=== PATIENT | male | born 1940 | race Caucasian/White ===

== ENCOUNTER 2021-11-05 13:51 | Inpatient (IN) | payer MEDICARE, BC ==
[~2021-11-05] VITALS: Ht 175.3 cm; Wt 88.9 kg
[~2021-11-05 13:51] MED LIST: BUPR300T52 PO; CHOL20004 PO; ESOM20CA PO; SIMV10TA2 PO; TAMS-3 PO
[2021-11-05] MEDS ORDERED: IV NORMAL SALINE 1000 ML BAG IV ONE (14:15)
[2021-11-05] MEDS ORDERED: KETOROLAC TROMETHAMINE 15 MG INJ IVP ONE (14:15)
[2021-11-05 14:26] LABS: HEMATOCRIT 44.9 % (36.7-47.1); MEAN CORPUSCULAR HEMOGLOBIN 32.1 uug (23.8-33.4); MEAN CORPUSCULAR VOLUME 92.8 fL (73.0-96.2); PLATELET COUNT (AUTO) 218 K/uL (152-348)
[2021-11-05] MEDS ORDERED: SWABABLE VALVE TRANSFER SET EA MC ONE (14:27)
[2021-11-05] MEDS ORDERED: IV NORMAL SALINE 250 ML IV ONE (14:27)
[2021-11-05] MEDS ORDERED: IOHEXOL 300MG/ML 100 ML INFUS..BTL ONE (14:27)
[2021-11-05] MEDS ORDERED: KETOROLAC TROMETHAMINE 15 MG INJ ONE (14:30)
[2021-11-05 14:44] LABS: BILIRUBIN,TOTAL 0.7 mg/dL (0.2-1.0); POTASSIUM 3.8 mmol/L (3.5-5.1); TOTAL PROTEIN, SERUM 7.1 g/dL (6.4-8.2)
--- NOTE | 2021-11-05 15:35 | NUR ---
Pt taken for CT scan via wheelchair accompanied by tech. Pt in stable condition at time of transport, in NAD.
--- NOTE | 2021-11-05 15:55 | NUR ---
Pt return to unit in stable condition. IV hydration resumed. Pt in NAD at this time.
--- NOTE | 2021-11-05 17:40 | NUR ---
Provider spoke with pt regarding CT results. Pt states being in agreement with admission but may have some reservations on having a surgery. Will consider his options and will let us know what he decides.
--- NOTE | 2021-11-05 18:25 | NUR ---
Rm assignment [id number]. Will endorse to superintendent meter tests.
[2021-11-05] MEDS: ONDANSETRON 4 MG/2 ML VIAL IV PRN (18:40)
[2021-11-05] MEDS ORDERED: ONDANSETRON 4 MG/2 ML VIAL ONE (18:45)
[2021-11-05] MEDS ORDERED: MORPHINE SULFATE 2 MG/1 ML DISP.SYRIN ONE (18:45)
[2021-11-05] MEDS ORDERED: MORPHINE SULFATE 2 MG/1 ML DISP.SYRIN IV ONE (19:15)
[2021-11-05 20:13] LABS: *BILIRUBIN,URIN NEGATIVE (NEGATIVE); *BLOOD, URINE NEGATIVE (NEGATIVE); *CLARITY,URINE CLEAR (CLEAR); *COLOR,URINE YELLOW (YELLOW); *KETONES,URINE TRACE (NEGATIVE); *UROBILINOGEN,URINE 0.2 E.U./dl (NORMAL); LEUKOCYTE ESTERASE ,URINE NEGATIVE (NEGATIVE); NITRITE, URINE NEGATIVE (NEGATIVE); UGLUCOSE NEGATIVE (NEGATIVE)
[2021-11-05] MEDS ORDERED: ONDANSETRON 4 MG/2 ML VIAL IV PRN (20:15)
[2021-11-05] MEDS ORDERED: MORPHINE SULFATE 4 MG/1 ML DISP.SYRIN IV PRN (20:15)
[2021-11-05] MEDS ORDERED: MORPHINE SULFATE 4 MG/1 ML DISP.SYRIN ONE (20:25)
[2021-11-05 20:30] VITALS: BP 111/74
--- NOTE | 2021-11-05 20:30 | NUR ---
Report given to Eladia MATA tele.
--- NOTE | 2021-11-05 20:40 | NUR ---
admitted this 81 y.o male from er, accompanied by and er nurse via silvana, alert oriented x4, no acute distress noted, cief complaints of abdominal pain on right upper quadrant,npo observed. admission care done, tonja gomez notified, admit ordrers carried out.iv access on left antecubital area, g 20 patent and intact. needs attended to.
[2021-11-05 21:00] VITALS: BP 111/74
[2021-11-05] MEDS ORDERED: PIPERACILLIN/TAZOBACTAM/D5W 100 ML IV ONE (22:51)
[2021-11-06] VITALS (7 sets, daily range): BP systolic 90–132; BP diastolic 46–66
--- NOTE | 2021-11-06 | NUR ---
penitentiary assessment done, skin intact, on tele sr 68.hs care done, instructed regarding upcoming surgery in am, advance directive papers provided by , attached to chart, vital signs taken and recorded, afebrile now, tylenol supp. effective. for oscar covington in am by dr. felipe, pt wants to sign consent after speaking with
[2021-11-06] MEDS: ACETAMINOPHEN 650 MG SUPP.RECT RC PRN ×2 (00:07→11:23)
[2021-11-06] MEDS: PIPERACILLIN SODIUM/TAZOBACTAM 3.375 G in IV DEXTROSE 5% 50 ML IV SCH ×2 (00:12→06:21)
[2021-11-06] MEDS: MORPHINE SULFATE 2 MG/1 ML DISP.SYRIN IV PRN ×2 (04:12→20:30)
[2021-11-06] MEDS: ONDANSETRON 4 MG/2 ML VIAL IV PRN (04:51)
--- NOTE | 2021-11-06 06:40 | NUR ---
lab draws done for type screen and pt/ptt,zofran effective for nausea.
[2021-11-06 06:49] LABS: HEMATOCRIT 41.2 % (36.7-47.1); MEAN CORPUSCULAR HEMOGLOBIN 31.6 uug (23.8-33.4); MEAN CORPUSCULAR VOLUME 93.5 fL (73.0-96.2); PLATELET COUNT (AUTO) 173 K/uL (152-348)
[2021-11-06] MEDS ORDERED: MIDAZOLAM HCL 2 MG/2 ML VIAL ONE (06:50)
[2021-11-06] MEDS ORDERED: FENTANYL CITRATE 250 MCG/5 ML AMPUL ONE (06:51)
[2021-11-06] MEDS ORDERED: HYDROMORPHONE 2 MG/1 ML DISP.SYRIN ONE (06:51)
[2021-11-06] MEDS ORDERED: ROCURONIUM BROMIDE 50 MG/5 ML VIAL ONE (06:52)
[2021-11-06 06:55] LABS: BILIRUBIN,TOTAL 1.1 mg/dL (0.2-1.0); CREATININE 1.1 mg/dL (0.6-1.3); MAGNESIUM 1.6 mg/dL (1.8-2.4); POTASSIUM 3.9 mmol/L (3.5-5.1)
[2021-11-06] MEDS ORDERED: BUPIVACAINE 0.25% 30 ML VIAL ONE (07:02)
--- NOTE | 2021-11-06 07:02 | NUR ---
voided freely well, ivfluids infusing well.surgical team picked up pt via bed, in apparently fair condition
[2021-11-06] MEDS: PANTOPRAZOLE SODIUM 40 MG VIAL IV SCH (08:11)
--- NOTE | 2021-11-06 08:11 | NUR ---
Pt picked up by surgery team. Pt kept NPO
[2021-11-06] MEDS ORDERED: SEVOFLURANE 250 ML BOTTLE IH ONE (09:57)
[2021-11-06] MEDS ORDERED: PROPOFOL 200 MG/20 ML BOTTLE IV ONE (09:57)
[2021-11-06] MEDS ORDERED: ONDANSETRON 4 MG/2 ML VIAL IV ONE (09:57)
[2021-11-06] MEDS ORDERED: GLYCOPYRROLATE 0.2 MG/ML VIAL IJ ONE (09:57)
[2021-11-06] MEDS ORDERED: METOCLOPRAMIDE HCL 10 MG/2 ML VIAL IV ONE (09:57)
[2021-11-06] MEDS ORDERED: LIDOCAINE-MPF 2% 5 ML VIAL IJ ONE (09:57)
[2021-11-06] MEDS ORDERED: CEFAZOLIN 1 G VIAL IM ONE (09:57)
[2021-11-06] MEDS ORDERED: NEOSTIGMINE METHYLSULFATE 10 MG/10 ML VIAL IM ONE (09:57)
[2021-11-06] MEDS: MAGNESIUM SULFATE/D5W 100 ML IV SCH ×2 (11:06→14:05)
--- NOTE | 2021-11-06 11:10 | NUR ---
Received pt back. Pt alert x 2 reoriented pt to time. Noted CLIFFORD site on right upper quadrant on suction. 3x stab wounds on abd. mid. x2 right upper quadrant. Pt on 3 liters. Hanged magnesium 1/2 secondary to mag of 1.6
--- NOTE | 2021-11-06 12:00 | NUR ---
Pt has elevated temp of 101. Tylenol given and cooling measures done. Notified Dr sorensen. Blood culture done. Call light is within reach.
[2021-11-06] MEDS ORDERED: PIPERACILLIN SODIUM/TAZOBACTAM 3.375 G in IV DEXTROSE 5% 50 ML IV SCH (14:00)
--- NOTE | 2021-11-06 14:00 | NUR ---
Tylenol and cooling measure effective. Temp 98.0 Call light is within reach.
[2021-11-06] MEDS: PIPERACILLIN SODIUM/TAZOBACTAM 3.375 G in IV DEXTROSE 5% 100 ML IV SCH (14:05)
[2021-11-06] MEDS ORDERED: DEXT10TA19 PO (16:35)
[2021-11-06] MEDS ORDERED: ESOM40CA PO (17:20)
[2021-11-06] MEDS ORDERED: SIMV-46 PO (17:22)
[2021-11-06] MEDS ORDERED: TIMO5DRO18 EACHEYE (17:28)
[2021-11-06] MEDS ORDERED: ZOLP10TA2 PO (17:54)
[2021-11-06] MEDS ORDERED: Medication Not On Formulary EA (Zolpidem Tartrate (Ambien) 10 MG) PO PRN (18:15)
--- NOTE | 2021-11-06 18:45 | NUR ---
PT denies any complain of pain. Pt still not passing gas. Call light is within reach.
--- NOTE | 2021-11-06 20:00 | NUR ---
RECD PT IN BED, NO ACUTE DISTRESS NOTED,VITAL SIGNS TAKEN AND RECORDED, NEEDS ATTENDED TO,ALERT ORIENTEDX 4, AT BEDSIDE,IV FLUIDS INFUSING WELL.REPOSITIONED FOR COMFORT, INSTRUCTED ON HOW TO USE INCENTIVE SPIROMETER, ABLE TO FOLLOW DIRECTIONS, CLIFFORD DRAIN ON RIGHT SIDE OF ABDOMEN INTACT AND DRAINING WELL TO SERO SANGINOUS DRAINAGE,LAP SITES CLEAN AND DRESSINGS ARE INTACT. DEEP BREATHING EXERCISES AND COUGHING ENCOURAGED.
[2021-11-06] MEDS: IV D5 1/2 NS 1000 ML 1,000 ML IV PRN ×2 (22:36)
[2021-11-07] VITALS (50 sets, daily range): BP systolic 71–156; BP diastolic 34–112
[2021-11-07] MEDS ORDERED: PIPERACILLIN SODIUM/TAZOBACTAM 3.375 G in IV DEXTROSE 5% 50 ML IV SCH ×2
--- NOTE | 2021-11-07 | NUR ---
TEMP AT THIS TIME 100.2, COOLING MEASURES DONE, TYLENOL SUPP.GIVEN, VOIDED FREELY WELL USING URINAL, KEPT DRY AND CLEAN, HR MOSTLY ON THE LOW SIDE,ABLE TO TOLERATE FLUIDS ORALLY, ABDOMINAL AREA CHECKED FOR ANY DEVIATION.IV SITE PATENT AND INTACT ON LEFT ANTECUBITAL AREA. SLEPT ON AND OFF.IVPB ZOSYN INFUSED ORDERED.
[2021-11-07] MEDS: ACETAMINOPHEN 650 MG SUPP.RECT RC PRN (01:09)
[2021-11-07] MEDS: PIPERACILLIN SODIUM/TAZOBACTAM 3.375 G in IV DEXTROSE 5% 50 ML IV SCH ×2 (01:12→06:00)
[2021-11-07] MEDS: MORPHINE SULFATE 2 MG/1 ML DISP.SYRIN IV PRN ×2 (01:46→09:29)
--- NOTE | 2021-11-07 03:15 | NUR ---
HR WENT DOWN TO 43-47, PT AWAKENED, REPOSITIONED.VITAL SIGN TAKEN BP 84/38, ALERT ORIENTED,SKILLED ASSESSMENT DONE. ROOM TEMP REGULATED, 98.9 TEMP. DVT PUMP ON BOTH LOWER EXTREMITIES, CLIFFORD DRAIN IN PLACE. DR. SEGURA NOTIFIED OF PT'S LOWBP AND VERY LOW HR. NO FURTHER ORDERS GIVEN , CONTINUE TO MONITOR PT'S CONDITION.
--- NOTE | 2021-11-07 04:36 | NUR ---
STILL NOT PASSING GAS, VOIDING FREELY, NOTHING UNUSUAL NOTED ON LAP SITES.SLEPT INTERMITTENTLY.ABLE TO DANLE IN BED FOR SHORT TIME,NO NAUSEA OR DIZZINESS NOTED.STILL ON DNR STATUS.
[2021-11-07] MEDS: PIPERACILLIN SODIUM/TAZOBACTAM 3.375 G in IV DEXTROSE 5% 100 ML IV SCH (06:14)
--- NOTE | 2021-11-07 06:26 | NUR ---
RESTING QUIETLY,AFEBRILE, OXYGEN INHALATION AT2L VIA NC,SATS 95%,ENDORSED TO AM SHIFT IN APPARENT;Y FAIR CONDITION
[2021-11-07 06:56] LABS: HEMATOCRIT 37.1 % (36.7-47.1); MEAN CORPUSCULAR VOLUME 94.1 fL (73.0-96.2); PLATELET COUNT (AUTO) 129 K/uL (152-348)
[2021-11-07 07:17] LABS: BILIRUBIN,TOTAL 0.9 mg/dL (0.2-1.0); CREATININE 1.3 mg/dL (0.6-1.3); MAGNESIUM 2.4 mg/dL (1.8-2.4); POTASSIUM 3.5 mmol/L (3.5-5.1); TOTAL PROTEIN, SERUM 5.4 g/dL (6.4-8.2)
--- NOTE | 2021-11-07 08:00 | NUR ---
Clarified with pharmacy that zosyn was given earlier from hs shift.
[2021-11-07] MEDS ORDERED: IV NORMAL SALINE 500 ML IV ONE (09:15)
[2021-11-07] MEDS: PANTOPRAZOLE SODIUM 40 MG VIAL IV SCH (09:22)
[2021-11-07] MEDS: TIMOLOL MALEATE 0.5% OPHT DROP 5 ML BOTTLE EACHEYE SCH (09:22)
[2021-11-07] MEDS ORDERED: PROPOFOL 200 MG/20 ML BOTTLE ONE (10:00)
--- NOTE | 2021-11-07 10:50 | NUR ---
PT restless moaning and groaning turning frequently. Checked o2 sat got 71 % called rapid response. Put pt on NRB mask got o2 back up to 96%. checked temp 98.1. bp elevated 183/95- [address] hickman and notified of findings including wheezing RIGHT LOWER Lung. ABG CXR EKG TROP LACTIC BNP Atrovent HHNTX ordered- done and given accordingly. [address] result given to dr hickman. noted st depression on ekg strip - Put pt on tele for monitoring. b/p now 123/85 - hr 65 resp 24 02 sat 97 on NRB. pt still turning and tossing and still restless pt now taking out his O2 NRB and DESATURATING TO LOW 80% sat and attempting to pull out his IV. GOT an order for ativan. 1130 Called [employer] supervisor and security to have DPOA FARZANA [phone]. FARZANA was overbearing to staff and dictating what to do. taken out of room for she was interfering with pt care. Farzana out on waiting room on hallway. 1145 Ativan given as ordered. 1200 pt calm ativan effective. pt on 02 @6lit with 97% b/p 1210 Pt started to get agitated, restless, and shivering again. Now pt is clenching his teeth down and mouth is bleeding IV TAKEN OUT, desaturating to 84% put pt back on nrb mask got sat back up to 92% l DR HICKMAN HERE (aware of all informations of lab cxr abg ekg results) TO update FARZANA DPOA. DR HICKMAN saw pt's condition of being agitated and restless 1212 Tylenol suppository given per dr hickman. DR hickman spoke with FARZANA whitlock to Intubate patient. DR miranda here / WAITER/WAITRESS FIRST CLASS KYLE helped out on giving MEDS during intubation. PT intubated @ 1230 . 1245 Transferred to ICU. Last VS 149/64 - HR 74- o2 sat 99% intubated- hr 70 snr on tele- resp 20. Addendum: 11/07/21 at 1642 by LACEY MATHEWS RN URINE SPECIMEN COLLECTED AND SENT TO LAB
[2021-11-07] MEDS ORDERED: IPRATROPIUM BROMIDE 0.5 MG/2.5 ML NEBU NEB PRN (11:00)
[2021-11-07 11:10] LABS: ABG BASE EXCESS -4.4 mmol/L; ABG HCO3 21.4 mmol/L; ABG PCO2 42.1 mmHg (35.0-45.0); ABG PH 7.324 (7.350-7.450); ABG SITE LEFT RADIAL; ABG TOTAL HEMOGLOBIN 14.8 G/dL (13.5-18.0); COHb 0.6 % (0.5-1.5); MetHb 0.2 % (0.0-1.5); O2Hb 96.6 % (94.0-97.0)
[2021-11-07] MEDS ORDERED: LORAZEPAM 2 MG/1 ML VIAL IV ONE ×2 (11:45)
[2021-11-07] MEDS ORDERED: ETOMIDATE 20 MG/10 ML VIAL IV ONE (12:00)
[2021-11-07] MEDS ORDERED: SUCCINYLCHOLINE CHLORIDE 200 MG/10 ML VIAL IV ONE (12:00)
[2021-11-07] MEDS ORDERED: PROPOFOL 50 ML IV PRN (12:30)
--- NOTE | 2021-11-07 12:30 | NUR ---
PT INTUBATED BY WITH A SIZE 7.5 ETT WITHOUT DIFFICULTY. COLOR CHANGE ON END-TIDAL, BI-LATERAL BREATH SOUNDS OBSERVED. ETT IS PATENT AND SECURED WITH ANCHORFAST APPROX 23CM AT THE LIP. PT TRANSPORTED TO CCU AND PLACED ON VENTILATOR ON SETTINGS GIVEN BY . A/C 20, VT 550, PEEP +5, 100% FIO2. PT IS TOLERATING VENT SETTINGS WELL, SPO2 AND RESPIRATIONS WNL. NO RESP. DISTRESS NOTED. SPUTUM SPECIMEN COLLECTED. VENT PLUGGED INTO RED OUTLET. WILL CONTINUE TO MONITOR.
[2021-11-07] MEDS ORDERED: MEROPENEM 1 G in IV NORMAL SALINE 100 ML IV SCH (12:45)
[2021-11-07] MEDS ORDERED: BUMETANIDE 1 MG/4 ML VIAL IV ONE (12:45)
[2021-11-07] MEDS ORDERED: NOREPINEPHRINE BITARTRATE 32 MG in IV NORMAL SALINE 218 ML IV PRN (12:45)
[2021-11-07] MEDS: NOREPINEPHRINE BITARTRATE 32 MG in IV NORMAL SALINE 218 ML IV PRN (13:33)
[2021-11-07] MEDS ORDERED: PROPOFOL 100 ML IV PRN (13:45)
[2021-11-07] MEDS ORDERED: PIPERACILLIN SODIUM/TAZOBACTAM 3.375 G in IV DEXTROSE 5% 100 ML IV SCH (14:00)
[2021-11-07 14:11] LABS: ABG BASE EXCESS -4.5 mmol/L; ABG HCO3 18.7 mmol/L; ABG PCO2 29.9 mmHg (35.0-45.0); ABG PH 7.414 (7.350-7.450); ABG PO2 99.4 mmHg (75.0-100.0); ABG SITE RIGHT RADIAL; ABG TOTAL HEMOGLOBIN 14.7 G/dL (13.5-18.0); COHb 0.5 % (0.5-1.5); MetHb 0.3 % (0.0-1.5); O2Hb 97.3 % (94.0-97.0); VENT MODE VENT - A/C; VT, ABG 550 mL
--- NOTE | 2021-11-07 14:16 | NUR ---
1250 received pt from homer RN rectal temp 105.6 pt diaphoretic on a home warming blanket, iv infiltrated, bilat arm PIV started, placed continuous monitor rectal thermometer, placed on cooling blanket and cool towels, placed Grady, og tube, vs stabilized .
[2021-11-07 14:45] LABS: HEMATOCRIT 42.2 % (36.7-47.1); MEAN CORPUSCULAR HEMOGLOBIN 31.7 uug (23.8-33.4); PLATELET COUNT (AUTO) 119 K/uL (152-348)
[2021-11-07] MEDS: PROPOFOL 100 ML IV PRN ×3 (15:05→22:16)
[2021-11-07] MEDS: VANCOMYCIN IV 1,500 MG in IV DEXTROSE 5% 500 ML IV SCH (15:19)
[2021-11-07] MEDS ORDERED: VANCOMYCIN IV 1,500 MG in IV DEXTROSE 5% 500 ML IV SCH (16:00)
[2021-11-07] MEDS ORDERED: HEPARIN SODIUM,PORCINE 5,000 UNITS/ML VIAL SQ SCH (16:30)
[2021-11-07] MEDS ORDERED: IV NS 1000 ML 1,000 ML IV PRN (16:30)
[2021-11-07 17:12] LABS: ALANINE AMINOTRANSFERASE 175 U/L (16-63); ALKALINE PHOSPHATASE 111 U/L (50-136); ASPARTATE AMINOTRANSFERASE 219 U/L (15-37); BILIRUBIN,TOTAL 2.8 mg/dL (0.2-1.0); CARBON DIOXIDE 22 mmol/L (21-32); CHLORIDE 100 mmol/L (98-107); CREATININE 1.4 mg/dL (0.6-1.3); GLUCOSE 181 mg/dL (74-106); TOTAL PROTEIN, SERUM 5.9 g/dL (6.4-8.2); UREA NITROGEN, BLOOD 21 mg/dL (7-18)
[2021-11-07 17:16] LABS: *BILIRUBIN,URIN NEGATIVE (NEGATIVE); *CLARITY,URINE CLEAR (CLEAR); *COLOR,URINE DARK YELLOW (YELLOW); *KETONES,URINE NEGATIVE (NEGATIVE); *UROBILINOGEN,URINE 0.2 E.U./dl (NORMAL); LEUKOCYTE ESTERASE ,URINE NEGATIVE (NEGATIVE); NITRITE, URINE NEGATIVE (NEGATIVE); PH,URINE 5.5 (5.0-8.0); POTASSIUM 2.8 mmol/L (3.5-5.1); UGLUCOSE NEGATIVE (NEGATIVE)
[2021-11-07 17:24] LABS: *BLOOD, URINE TRACE (NEGATIVE)
[2021-11-07] MEDS ORDERED: HEPARIN/D5W 25000 UNITS/500 ML BAG IV ONE (17:30)
[2021-11-07 18:08] LABS: BACTERIA,URINE FEW /HPF (NONE SEEN)
[2021-11-07 18:09] LABS: MUCUS,URINE FEW /LPF (0-FEW); SQUAMOUS EPITHELIAL CELL,UR FEW /HPF (NONE SEEN)
--- NOTE | 2021-11-07 19:00 | NUR ---
received patient sedated , on propofol 40 mcg , levophed at 0.03 mcg , vent setting of 20 tv 550 p5 fio2 100 % , cooling blanket off , bragg and picc line ghulam , peipheral left hand intact , current temp 97.0 . HR 58 , 124/73
--- NOTE | 2021-11-07 19:30 | NUR ---
DR HICKMAN IS MADE AWARE PATIENT IS TOO FRAGILE AND UNSTABLE TO TAKE DOWN FOR CT OF ABDOMEN TONIGHT
[2021-11-07] MEDS: HEPARIN/D5W DRIP 500 ML IV PRN (20:00)
--- NOTE | 2021-11-07 20:00 | NUR ---
HEPARIN STARTED , NO BOLUS , OGT INTACT , PLACEMENT VERIFIED , NO RESIDUAL , BROWNISH DRAINAGE WHEN ASPIRATED , CLIFFORD INTACT ON RIGHT LATERAL ABDOMEN , INCISION SITE INTACT
--- NOTE | 2021-11-07 20:15 | NUR ---
FULL FUAD BATH GIVEN ON THE PATIENT , ALL LINENS CHANGED
--- NOTE | 2021-11-07 21:06 | NUR ---
HARDYA ID IS HERE AT BEDSIDE , UPDATE S GIVEN ON THE PATIENT
[2021-11-07] MEDS: MEROPENEM 1 G in IV NORMAL SALINE 100 ML IV SCH (21:29)
[2021-11-08] VITALS (95 sets, daily range): BP systolic 86–163; BP diastolic 34–102
--- NOTE | 2021-11-08 01:21 | NUR ---
DPOA CALLED , CHANGED THE CODE STATUS TO FULL CODE, DOCTOR MADE AWARE
--- NOTE | 2021-11-08 01:50 | NUR ---
RECEIVED PATIENT INTUBATED ON A MECHANICAL VENTILATOR. PATIENT IS INTUBATED WITH A SIZE 7.5 ET TUBE AND IT IS SECURED WITH THE ANCHORFAST AT APPROX 23CM AT THE LIP. PATIENT IS ON THE FOLLOWING SETTINGS THAT ARE CHARTED ON THE MECHANICAL VENTILATOR NOTES. SUCTIONED SMALL AMOUNT OF SECRETIONS. HME CHANGED. ORAL CARE DONE. PATIENT IS TOLERATING CURRENT VENTILATOR SETTINGS. VENTILATOR IS PLUGGED IN THE RED OUTLET. VENTILATOR ALARMS ARE ON AND AUDIBLE. NO SOB NOTED AT THIS TIME. WILL CONTINUE TO MONITOR.
[2021-11-08] MEDS: PROPOFOL 100 ML IV PRN ×6 (02:15→23:12)
[2021-11-08] MEDS: ACETAMINOPHEN 650 MG SUPP.RECT RC PRN (02:16)
[2021-11-08 05:18] LABS: HEMATOCRIT 40.9 % (36.7-47.1); MEAN CORPUSCULAR HEMOGLOBIN 31.9 uug (23.8-33.4); MEAN CORPUSCULAR VOLUME 92.9 fL (73.0-96.2); PLATELET COUNT (AUTO) 107 K/uL (152-348)
[2021-11-08 05:34] LABS: BILIRUBIN,TOTAL 2.4 mg/dL (0.2-1.0); CREATININE 1.3 mg/dL (0.6-1.3); MAGNESIUM 1.8 mg/dL (1.8-2.4); PHOSPHOROUS 1.6 mg/dL (2.5-4.9); TOTAL PROTEIN, SERUM 5.6 g/dL (6.4-8.2)
[2021-11-08 05:54] LABS: ABG HCO3 21.4 mmol/L; ABG PCO2 30.2 mmHg (35.0-45.0); ABG PH 7.469 (7.350-7.450); ABG PO2 157.8 mmHg (75.0-100.0); ABG SITE LEFT BRACHIAL; ABG TOTAL HEMOGLOBIN 15.8 G/dL (13.5-18.0); COHb 0.3 % (0.5-1.5); MetHb 0.3 % (0.0-1.5); O2Hb 98.6 % (94.0-97.0); VENT MODE VENT - A/C; VT, ABG 550 mL
--- NOTE | 2021-11-08 06:00 | NUR ---
vent setting , fio2 70 % , heparin 1400 units /hr , next ptt 0800, levophed 0.2 mcg , ns 100 ml , ngt and bragg , picc line intact
--- NOTE | 2021-11-08 06:00 | NUR ---
mike paris , notified of lab work this morning , ordered potasium iv 40 meq , but dr sorensen already orderd klor powder
[2021-11-08 06:05] LABS: POTASSIUM 2.4 mmol/L (3.5-5.1)
[2021-11-08] MEDS ORDERED: POTASSIUM CHLORIDE 20 MEQ POWDER PACKET NG ONE ×2 (06:45→10:00)
[2021-11-08] MEDS ORDERED: POTASSIUM PHOSPHATE MM 15 MMOL in IV NORMAL SALINE 250 ML IV ONE (07:00)
[2021-11-08] MEDS: PANTOPRAZOLE SODIUM 40 MG VIAL IV SCH (08:06)
[2021-11-08] MEDS: MEROPENEM 1 G in IV NORMAL SALINE 100 ML IV SCH ×2 (08:07→20:53)
[2021-11-08] MEDS: Z GUARD REMEDY PASTE 57 GM TUBE TOP SCH ×2 (08:08→20:53)
[2021-11-08] MEDS: ASPIRIN 81 MG TAB.CHEW PO SCH (08:42)
[2021-11-08] MEDS: NOREPINEPHRINE BITARTRATE 32 MG in IV NORMAL SALINE 218 ML IV PRN (12:32)
[2021-11-08] MEDS: VANCOMYCIN IV 1,500 MG in IV DEXTROSE 5% 500 ML IV SCH (12:33)
[2021-11-08] MEDS: TIMOLOL MALEATE 0.5% OPHT DROP 5 ML BOTTLE EACHEYE SCH (12:33)
[2021-11-08 13:39] LABS: CREATININE 1.2 mg/dL (0.6-1.3); POTASSIUM 3.8 mmol/L (3.5-5.1)
[2021-11-08 13:45] LABS: BILIRUBIN,TOTAL 2.1 mg/dL (0.2-1.0); TOTAL PROTEIN, SERUM 5.7 g/dL (6.4-8.2)
[2021-11-08] MEDS: HEPARIN/D5W DRIP 500 ML IV PRN (15:05)
[2021-11-08] MEDS ORDERED: SWABABLE VALVE TRANSFER SET EA MC ONE (15:46)
[2021-11-08] MEDS ORDERED: IOHEXOL 350 100 ML INFUS..BTL ONE (15:46)
[2021-11-08] MEDS ORDERED: IV NORMAL SALINE 250 ML IV ONE (15:46)
[2021-11-08] MEDS ORDERED: FUROSEMIDE 40 MG/4 ML VIAL IV ONE (19:00)
--- NOTE | 2021-11-08 19:15 | NUR ---
received patient sedated , responds to deep pain , by withdrawal, levophed at 0.1 mcg , diprivan at 50 mcg , heparin at 1400 units /hr , picc line ghulam intact , surgical incision abdomen intact , devon on right right abdomen draining and intact , no fevr , ogt placement checked , no residual bur has a small brown secretions when aspirated
--- NOTE | 2021-11-08 19:15 | NUR ---
vent setting ac 20 tv 550 p5 fio2 50 %
--- NOTE | 2021-11-08 21:00 | NUR ---
jorge alberto id is at bedside , updates given about the patient condition
[2021-11-09] VITALS (66 sets, daily range): BP systolic 91–136; BP diastolic 58–80
[2021-11-09] MEDS: PROPOFOL 100 ML IV PRN ×6 (02:52→22:24)
--- NOTE | 2021-11-09 04:54 | NUR ---
* Understands adequate fluid intake * Maintains vital signs WNL * Maintains optimal electrolyte values * Maintains balanced intake and output * Maintains BUN and Hct WNL Addendum: 11/09/21 at 0456 by RENETTA TAYLOR RN Amended: Links added. Addendum: 11/09/21 at 0457 by RENETTA TAYLOR RN Amended: Fifi ryder.
[2021-11-09 05:28] LABS: ABG BASE EXCESS 3.1 mmol/L; ABG HCO3 23.2 mmol/L; ABG PH 7.586 (7.350-7.450); ABG SITE LEFT RADIAL; ABG TOTAL HEMOGLOBIN 15.3 G/dL (13.5-18.0); COHb 0.2 % (0.5-1.5); MetHb 0.2 % (0.0-1.5); O2Hb 97.9 % (94.0-97.0); VENT MODE VENT - A/C; VT, ABG 550 mL
[2021-11-09 05:55] LABS: BILIRUBIN,TOTAL 1.7 mg/dL (0.2-1.0); CREATININE 1.1 mg/dL (0.6-1.3); MAGNESIUM 2.2 mg/dL (1.8-2.4); PHOSPHOROUS 2.2 mg/dL (2.5-4.9); POTASSIUM 2.9 mmol/L (3.5-5.1); TOTAL PROTEIN, SERUM 6.1 g/dL (6.4-8.2)
[2021-11-09 06:18] LABS: HEMATOCRIT 42.4 % (36.7-47.1); MEAN CORPUSCULAR VOLUME 92.3 fL (73.0-96.2); PLATELET COUNT (AUTO) 120 K/uL (152-348)
--- NOTE | 2021-11-09 06:21 | NUR ---
vent seting the same , ogt placement checekd and verified , ett secured , devon intact , no drainage on abdominal incision , no fever , heparin at 1400 units / hr , diprivan at 50 mcg , levophed at 0.1 mcg , sr
--- NOTE | 2021-11-09 06:36 | NUR ---
lab is called for current PTT results , no results yet
[2021-11-09] MEDS: HEPARIN/D5W DRIP 500 ML IV PRN (06:52)
[2021-11-09] MEDS: VANCOMYCIN IV 1,500 MG in IV DEXTROSE 5% 500 ML IV SCH (09:09)
[2021-11-09] MEDS: MEROPENEM 1 G in IV NORMAL SALINE 100 ML IV SCH ×2 (09:09→20:25)
[2021-11-09] MEDS: PANTOPRAZOLE SODIUM 40 MG VIAL IV SCH (09:09)
[2021-11-09] MEDS: TIMOLOL MALEATE 0.5% OPHT DROP 5 ML BOTTLE EACHEYE SCH (09:10)
[2021-11-09] MEDS: ASPIRIN 81 MG TAB.CHEW PO SCH (09:10)
[2021-11-09] MEDS: Z GUARD REMEDY PASTE 57 GM TUBE TOP SCH ×2 (09:11→20:26)
[2021-11-09] MEDS: ACETAMINOPHEN 650 MG SUPP.RECT RC PRN ×2 (09:28→14:05)
--- NOTE | 2021-11-09 09:34 | NUR ---
WOUND CARE CONSULT: RECEIVED CONSULT FOR SURGICAL INCISION. DEFER TO SURGEON CURRENTLY ON CASE FOR SURGICAL DRESSING. RECOMMENDATIONS MADE FOR SKIN PROTECTION. DISCUSSED WITH NURSING STAFF. FIRST STEP LOW AIRLOSS MATTRESS IS ON ORDER. MD IN AGREEMENT WITH PLAN OF CARE.
[2021-11-09] MEDS ORDERED: POTASSIUM CHLORIDE 20 MEQ POWDER PACKET NG SCH (09:45)
[2021-11-09] MEDS: POTASSIUM CHLORIDE 50 ML IV SCH ×6 (10:10→15:26)
[2021-11-09] MEDS ORDERED: SODIUM PHOSPHATE MM 15 MMOL in IV NORMAL SALINE 250 ML IV ONE (17:00)
--- NOTE | 2021-11-09 20:03 | NUR ---
appt d/c and spoked with [facility] pharmacy the heparin drip will be d/c this 1999 pm and patient will start on Plavix in am .
[2021-11-09] MEDS: ATORVASTATIN 40 MG TABLET PO SCH (20:26)
[2021-11-09] MEDS ORDERED: NOREPINEPHRINE BITARTRATE 8 MG in IV NORMAL SALINE 242 ML IV PRN (21:00)
--- NOTE | 2021-11-09 22:30 | NUR ---
PM CARE DONE ,BATH PATIENT CHANGED SOILED LINENS AND GOWN ,ORAL CARE DONE AND RUBI CARE DONE .
[2021-11-09] MEDS: IV NORMAL SALINE 250 ML IV PRN (23:05)
[2021-11-10] VITALS (23 sets, daily range): BP systolic 96–134; BP diastolic 58–79
[2021-11-10] MEDS: PROPOFOL 100 ML IV PRN ×5 (02:02→21:10)
--- NOTE | 2021-11-10 03:02 | NUR ---
PUNCHER AND FASTENER AT FOR VANCOMYCIN TROUGH LEVEL .
[2021-11-10] MEDS: VANCOMYCIN IV 1,500 MG in IV DEXTROSE 5% 500 ML IV SCH ×2 (04:02→19:24)
[2021-11-10 05:42] LABS: HEMATOCRIT 45.3 % (36.7-47.1); MEAN CORPUSCULAR HEMOGLOBIN 31.9 uug (23.8-33.4); MEAN CORPUSCULAR VOLUME 92.8 fL (73.0-96.2); PLATELET COUNT (AUTO) 133 K/uL (152-348)
[2021-11-10 05:47] LABS: BILIRUBIN,DIRECT 0.8 mg/dL (0.0-0.2); BILIRUBIN,TOTAL 1.4 mg/dL (0.2-1.0); MAGNESIUM 2.6 mg/dL (1.8-2.4); PHOSPHOROUS 3.6 mg/dL (2.5-4.9); TOTAL PROTEIN, SERUM 6.9 g/dL (6.4-8.2)
[2021-11-10 06:14] LABS: POTASSIUM 2.8 mmol/L (3.5-5.1)
[2021-11-10 07:27] LABS: ABG BASE EXCESS 0.4 mmol/L; ABG HCO3 21.8 mmol/L; ABG PCO2 26.8 mmHg (35.0-45.0); ABG PH 7.528 (7.350-7.450); ABG PO2 75.4 mmHg (75.0-100.0); ABG SITE RIGHT RADIAL; ABG TOTAL HEMOGLOBIN 13.9 G/dL (13.5-18.0); COHb 0.3 % (0.5-1.5); MetHb 0.2 % (0.0-1.5); O2Hb 95.5 % (94.0-97.0); VENT MODE VENT - A/C; VT, ABG 550 mL
[2021-11-10] MEDS ORDERED: POTASSIUM CHLORIDE 20 MEQ POWDER PACKET GT ONE (07:30)
[2021-11-10] MEDS: POTASSIUM CHLORIDE 50 ML IV SCH ×4 (08:17→10:53)
[2021-11-10] MEDS: CLOPIDOGREL 75 MG TABLET PO SCH (08:34)
[2021-11-10] MEDS: PANTOPRAZOLE SODIUM 40 MG VIAL IV SCH (08:34)
[2021-11-10] MEDS: ASPIRIN 81 MG TAB.CHEW PO SCH (08:34)
[2021-11-10] MEDS: MEROPENEM 1 G in IV NORMAL SALINE 100 ML IV SCH ×2 (08:36→16:31)
[2021-11-10] MEDS: TIMOLOL MALEATE 0.5% OPHT DROP 5 ML BOTTLE EACHEYE SCH (08:36)
[2021-11-10] MEDS: Z GUARD REMEDY PASTE 57 GM TUBE TOP SCH ×2 (08:37→20:27)
[2021-11-10] MEDS ORDERED: FUROSEMIDE 20 MG/2 ML VIAL IV ONE (12:00)
[2021-11-10] MEDS: ACETAMINOPHEN 650 MG/20.3 ML LIQUID UDC GT PRN (15:30)
--- NOTE | 2021-11-10 17:01 | NUR ---
plan for weaning in am per dr. givens. family request to have another covid test d/t covid patients on the floor. lasix 20 mg IV given to day with diuresis. potassium replacement given
--- NOTE | 2021-11-10 19:30 | NUR ---
ROUNDS MADE PATIENT INTUBATED ON VENT AC 16/TV 550/FIO2 35% PEEP 5.TOLERATING VENT SETTING RR 16 AND SATURATION 96 % .AFEBRILE 98.3 F ORALLY . SMALL TO MINIMAL SECRETIONS TF VIA OGT GLUCERNA IN PROGRESS 1.2 AT 40 ML/HOUR .GOAL OF 55 ML VERY MINIMAL RESIDUAL 10 ML . CONTINUE TO MONITOR TF . RUBI CATHETER IN PLACED WITH YOLA COLORED URINE,WILL MONITOR I AND OS . PROPOFOL FOR SEDATION SEE FLOW SHEET .WHEN OFF SEDATION PATIENT MOVED HEAD FORM SIDE TO SIDE AND FACIAL GRIMACING NOTED . BACK ON SEDATION FOR CPAP WEANING TRIAL IN AM .
--- NOTE | 2021-11-10 20:00 | NUR ---
FRIENDS AND FAMILY MEMBERS CAME AND VISITED PATIENT UPDATED WITH PATIENT CONDITION .
--- NOTE | 2021-11-10 20:00 | NUR ---
: REGINA CAME AND EXAMINED PATIENT AWARE ABOUT NURSES UNABLE TO PLACED RUBI CATHETER .INCONTINENT OF URINE NO DIAPER AND CHANGED DIAPER PRN .:REGINA WANTS TO TRY INSERTING RUBI CATHETER HIMSELF, CALLED NURSING FISHING LURE ASSEMBLER C/O REQUEST FOR UROLOGY CART AND A GUARD WIRE . Addendum: 11/10/21 at 2047 by HENRIQUE DIAZ RN NOT FOR THIS PATIENT .
--- NOTE | 2021-11-10 20:15 | NUR ---
: REGINA CAME VISITED PATIENT ,UPDATED MD WITH PATIENT V/S MEDICATIONS .
[2021-11-10] MEDS: ATORVASTATIN 40 MG TABLET PO SCH (20:27)
--- NOTE | 2021-11-10 20:45 | NUR ---
TURNED AND REPOSITION PATIENT OFFLOADED BACK WITH PILLOWS. HOB UP ,SUCTION PATIENT VIA ETT AND VIA MOUTH .
[2021-11-11] VITALS (24 sets, daily range): BP systolic 114–147; BP diastolic 54–88
[2021-11-11] MEDS: MEROPENEM 1 G in IV NORMAL SALINE 100 ML IV SCH ×3 (01:53→16:48)
[2021-11-11] MEDS: PROPOFOL 100 ML IV PRN ×2 (01:55→06:32)
--- NOTE | 2021-11-11 02:30 | NUR ---
AM CARE DONE BATH PATIENT AND CHANGED SOILED LINENS AND GOWN . TURNED AND REPOSITION PATIENT .
[2021-11-11] MEDS: IV NORMAL SALINE 250 ML IV PRN (03:03)
--- NOTE | 2021-11-11 03:13 | NUR ---
PATIENT ON CON CHILDERS VENT WITH 7.5 ET/TUBE IN PLACE AND SECURED, WITH VENT SETTINGS, A/C 16,550ML, PEEP5, 35%, PT WITH MOSTLY CONTROLLED VENTILATION, PT IS SEDATED, NO VENT CHANGES MADE AT THIS TIME , ABG IN AM, AMBU BAG AT BEDSIDE SUCTIONED LIGHT PALE YELL TINGE SECRETIONS, AND SUCTION MOUTH WITH RIAN, MIGUEL PROD Bri SIMONSP Addendum: 11/11/21 at 0315 by BASIM MUKHERJEE RT Amended: Links added.
--- NOTE | 2021-11-11 05:00 | NUR ---
AM LABS COLLECTED BY HEALTH SCIENCE INSTRUCTOR .
[2021-11-11 05:21] LABS: HEMATOCRIT 41.3 % (36.7-47.1); MEAN CORPUSCULAR HEMOGLOBIN 31.5 uug (23.8-33.4); MEAN CORPUSCULAR VOLUME 92.7 fL (73.0-96.2); PLATELET COUNT (AUTO) 142 K/uL (152-348)
[2021-11-11 05:36] LABS: BILIRUBIN,DIRECT 0.5 mg/dL (0.0-0.2); MAGNESIUM 2.2 mg/dL (1.8-2.4); PHOSPHOROUS 4.1 mg/dL (2.5-4.9); POTASSIUM 3.6 mmol/L (3.5-5.1)
--- NOTE | 2021-11-11 05:45 | NUR ---
CHEST XRAY DONE BY ADVISORY SOFTWARE ENGINEER AT B/S.
[2021-11-11] MEDS: PANTOPRAZOLE SODIUM 40 MG TABLET.DR PO SCH (06:31)
--- NOTE | 2021-11-11 08:00 | NUR ---
Pt.off propofol, follows commands ,placed by RT on CPAP.
--- NOTE | 2021-11-11 08:10 | NUR ---
Family at bedside, was updated with pt.condition and plan of care.
[2021-11-11] MEDS: TIMOLOL MALEATE 0.5% OPHT DROP 5 ML BOTTLE EACHEYE SCH (08:33)
[2021-11-11] MEDS: CLOPIDOGREL 75 MG TABLET PO SCH (08:33)
[2021-11-11] MEDS: ASPIRIN 81 MG TAB.CHEW PO SCH (08:33)
[2021-11-11] MEDS: Z GUARD REMEDY PASTE 57 GM TUBE TOP SCH ×2 (08:34→20:40)
--- NOTE | 2021-11-11 09:30 | NUR ---
Pt.was seen by ,family at bedside,updated with pt.condition and plan of care.
[2021-11-11] MEDS: VANCOMYCIN IV 1,500 MG in IV DEXTROSE 5% 500 ML IV SCH (09:56)
[2021-11-11] MEDS ORDERED: DC PROPOFOL ONCE EXTUBATED XX PRN (10:30)
--- NOTE | 2021-11-11 11:00 | NUR ---
Pt.extubated,tolerated well.
--- NOTE | 2021-11-11 19:45 | NUR ---
patient in bed awake alert ,able to verbalized needs . patient tolerating 02 nasal cannula at 3 l/min RR 20 and saturation 97%.patient denies pain when asked . post op site abdomen area dressing clean dry and intact .call light placed with in reach advised patient to call for assistance.
--- NOTE | 2021-11-11 20:30 | NUR ---
patient family and friend came to see him .
[2021-11-11] MEDS: ATORVASTATIN 40 MG TABLET PO SCH (20:40)
--- NOTE | 2021-11-11 21:00 | NUR ---
with another RN turned and reposition patient ,able to help in turning slow and weak . offloaded back with pillow and bilateral leg up with pillows .hob up at 30 degrees Yankauer placed with in each taught on how to suction self . call light placed with in reach .Grady patent and intact .
[2021-11-11] MEDS: MORPHINE SULFATE 2 MG/1 ML DISP.SYRIN IV PRN (21:24)
--- NOTE | 2021-11-11 21:24 | NUR ---
morphine prn pain medication given c/o pain request verbalized pain abdomen area 8/10.patient with facial grimacing noted and patient touching his abdomen .
--- NOTE | 2021-11-11 23:30 | NUR ---
pm care done bath patient changed soiled linens and gown,turned and reposition . f/c done and oral care done .
[2021-11-12] VITALS (21 sets, daily range): BP systolic 112–155; BP diastolic 50–83
[2021-11-12] MEDS: MEROPENEM 1 G in IV NORMAL SALINE 100 ML IV SCH ×3 (00:49→16:42)
--- NOTE | 2021-11-12 01:10 | NUR ---
vancomycin level -14.1 vancomycin given .
[2021-11-12] MEDS: MORPHINE SULFATE 2 MG/1 ML DISP.SYRIN IV PRN (01:19)
[2021-11-12] MEDS: VANCOMYCIN IV 1,500 MG in IV DEXTROSE 5% 500 ML IV SCH ×2 (02:12→16:40)
--- NOTE | 2021-11-12 02:40 | NUR ---
patient requested ice chip provided tolerated ice chips no n/v.
[2021-11-12 06:16] LABS: MEAN CORPUSCULAR HEMOGLOBIN 31.5 uug (23.8-33.4); MEAN CORPUSCULAR VOLUME 93.6 fL (73.0-96.2); PLATELET COUNT (AUTO) 161 K/uL (152-348)
[2021-11-12] MEDS: PANTOPRAZOLE SODIUM 40 MG TABLET.DR PO SCH (06:43)
[2021-11-12 06:57] LABS: CREATININE 0.9 mg/dL (0.6-1.3); MAGNESIUM 2.1 mg/dL (1.8-2.4); POTASSIUM 3.9 mmol/L (3.5-5.1)
[2021-11-12 07:33] LABS: ABG BASE EXCESS -0.5 mmol/L; ABG HCO3 23.1 mmol/L; ABG PCO2 34.9 mmHg (35.0-45.0); ABG PH 7.438 (7.350-7.450); ABG PO2 80.4 mmHg (75.0-100.0); ABG SITE RIGHT RADIAL; ABG TOTAL HEMOGLOBIN 14.5 G/dL (13.5-18.0); COHb 1.1 % (0.5-1.5); MetHb 0.2 % (0.0-1.5); O2Hb 95.4 % (94.0-97.0)
[2021-11-12] MEDS: Z GUARD REMEDY PASTE 57 GM TUBE TOP SCH ×2 (08:48→20:58)
[2021-11-12] MEDS: TIMOLOL MALEATE 0.5% OPHT DROP 5 ML BOTTLE EACHEYE SCH (08:48)
[2021-11-12] MEDS: ASPIRIN 81 MG TAB.CHEW PO SCH (08:58)
[2021-11-12] MEDS: CLOPIDOGREL 75 MG TABLET PO SCH (08:58)
[2021-11-12] MEDS: LOSARTAN POTASSIUM 25 MG TABLET PO SCH (12:31)
[2021-11-12] MEDS: ACETAMINOPHEN 650 MG/20.3 ML LIQUID UDC GT PRN (18:24)
[2021-11-12] MEDS: ATORVASTATIN 40 MG TABLET PO SCH (20:57)
[2021-11-12] MEDS: ZOLPIDEM 5 MG TABLET PO PRN (23:02)
[2021-11-13] VITALS (15 sets, daily range): BP systolic 114–141; BP diastolic 52–91
[2021-11-13] MEDS: MEROPENEM 1 G in IV NORMAL SALINE 100 ML IV SCH ×3 (01:55→17:45)
[2021-11-13 05:50] LABS: HEMATOCRIT 41.9 % (36.7-47.1); MEAN CORPUSCULAR HEMOGLOBIN 31.5 uug (23.8-33.4); MEAN CORPUSCULAR VOLUME 93.6 fL (73.0-96.2); PLATELET COUNT (AUTO) 219 K/uL (152-348)
[2021-11-13 06:07] LABS: CREATININE 0.9 mg/dL (0.6-1.3); MAGNESIUM 2.5 mg/dL (1.8-2.4); PHOSPHOROUS 3.2 mg/dL (2.5-4.9); POTASSIUM 3.8 mmol/L (3.5-5.1)
[2021-11-13 06:08] LABS: BILIRUBIN,DIRECT 0.4 mg/dL (0.0-0.2); BILIRUBIN,TOTAL 1.1 mg/dL (0.2-1.0); TOTAL PROTEIN, SERUM 6.7 g/dL (6.4-8.2)
[2021-11-13] MEDS: PANTOPRAZOLE SODIUM 40 MG TABLET.DR PO SCH (07:32)
[2021-11-13] MEDS: VANCOMYCIN IV 1,500 MG in IV DEXTROSE 5% 500 ML IV SCH ×2 (08:26→21:43)
[2021-11-13] MEDS: ASPIRIN 81 MG TAB.CHEW PO SCH (08:26)
[2021-11-13] MEDS: CLOPIDOGREL 75 MG TABLET PO SCH (08:26)
[2021-11-13] MEDS: LOSARTAN POTASSIUM 25 MG TABLET PO SCH (08:27)
[2021-11-13] MEDS: Z GUARD REMEDY PASTE 57 GM TUBE TOP SCH ×2 (08:29→20:59)
[2021-11-13] MEDS: TIMOLOL MALEATE 0.5% OPHT DROP 5 ML BOTTLE EACHEYE SCH (08:29)
--- NOTE | 2021-11-13 20:00 | NUR ---
PATIENT AWAKE VERBALLY RESPONSIVE, HOB ELEVATED NO SOB NO CHEST PAIN, ON 10 LITER NON REBREATHER MASK, SAT 99%, PATIENT STILL ON AMIODARONE DRIP 16.66 ML PER HOURS, TELE MONITOR A FIB IN THE BEGINNING OF THE SHIFT, BUT TURN TO SINUS RHYTHM, KEPT CLEAN AND DRY, CONT TO MONITOR.
[2021-11-13] MEDS: ATORVASTATIN 40 MG TABLET PO SCH (20:55)
[2021-11-13] MEDS: ZOLPIDEM 5 MG TABLET PO PRN (23:14)
[2021-11-13] MEDS: ACETAMINOPHEN 650 MG/20.3 ML LIQUID UDC GT PRN (23:34)
[2021-11-14 00:42] VITALS: BP 133/65
[2021-11-14] MEDS: MEROPENEM 1 G in IV NORMAL SALINE 100 ML IV SCH ×3 (01:08→17:31)
[2021-11-14 04:49] VITALS: BP 123/67
[2021-11-14] MEDS: PANTOPRAZOLE SODIUM 40 MG TABLET.DR PO SCH (06:13)
--- NOTE | 2021-11-14 06:59 | NUR ---
PATIENT SLEPT MOST OF THE NIGHT NO SOB NO CHEST PAIN, TELE MONITOR SINUS RHYTHM, PATIENT 3 PUNCTURE WOUND WITH DRESSING, SLIGHTLY SWELLING. NO FURTHER COMPLAIN OF PAIN AT THIS TIME, CALL LIGHT WITHIN REACH.
[2021-11-14 07:08] LABS: CREATININE 0.8 mg/dL (0.6-1.3); POTASSIUM 3.5 mmol/L (3.5-5.1)
[2021-11-14 08:34] LABS: HEMATOCRIT 38.9 % (36.7-47.1); MEAN CORPUSCULAR HEMOGLOBIN 31.9 uug (23.8-33.4); MEAN CORPUSCULAR VOLUME 92.5 fL (73.0-96.2); PLATELET COUNT (AUTO) 249 K/uL (152-348)
[2021-11-14] MEDS: TIMOLOL MALEATE 0.5% OPHT DROP 5 ML BOTTLE EACHEYE SCH (09:00)
[2021-11-14] MEDS: Z GUARD REMEDY PASTE 57 GM TUBE TOP SCH ×2 (09:00→20:13)
[2021-11-14] MEDS ORDERED: POTASSIUM CHLORIDE 20 MEQ POWDER PACKET GT ONE (09:15)
[2021-11-14] MEDS: ASPIRIN 81 MG TAB.CHEW PO SCH (10:12)
[2021-11-14] MEDS: CLOPIDOGREL 75 MG TABLET PO SCH (10:12)
[2021-11-14] MEDS: LOSARTAN POTASSIUM 25 MG TABLET PO SCH (10:12)
[2021-11-14] MEDS: MORPHINE SULFATE 2 MG/1 ML DISP.SYRIN IV PRN ×3 (10:48→22:48)
[2021-11-14 12:00] VITALS: BP 135/62
[2021-11-14 12:20] VITALS: BP 117/66
[2021-11-14] MEDS ORDERED: LIDOCAINE 2% (UROJET) 10 ML JELLY MM ONE (14:00)
[2021-11-14] MEDS: VANCOMYCIN IV 1,500 MG in IV DEXTROSE 5% 500 ML IV SCH (15:48)
[2021-11-14 16:00] VITALS: BP 125/68
--- NOTE | 2021-11-14 18:25 | NUR ---
Patient was in pain and uncomfortable mid morning. PRN morphine given with minimal relief. Bladder scan done, pt. retaining. MD made aware, ordered to straight cath. Output was a total of 1000. MD placed additional new orders. Chang removed per MD ordered. Tolerated it well. IVF on the right FA and PICC line in the BIJAL remains patent and intact. TELE SR at 75. In room air. Patient remains on full liquid diet. All meds given as ordered. All needs met. Safety and comfort measures maintained t/o shift. Vital signs remains stable.
[2021-11-14 20:00] VITALS: BP 101/55
[2021-11-14] MEDS: TAMSULOSIN HCL 0.4 MG CAP.SR.24H PO SCH (20:13)
[2021-11-14] MEDS: ATORVASTATIN 40 MG TABLET PO SCH (20:13)
[2021-11-14] MEDS ORDERED: ACETAMINOPHEN 650 MG/20.3 ML LIQUID UDC PO PRN (20:15)
--- NOTE | 2021-11-14 23:30 | NUR ---
PATIENT AWAKE IN BED. UNABLE TO URINATE. BLADDER SCANNED ORDERED, AND URINE RETENTION SHOWED 448cc. NOTIFIED FOILING MACHINE ADJUSTER AND PATIENT GIVEN MORPHINE 2MG IV PRN FOR PAIN. UNABLE TO STRAIGHT CATH PATIENT. FOILING MACHINE ADJUSTER AT BEDSIDE TO ATTEMPT INSERTION, STILL UNABLE TO INSERT RUBI. PATIENT URINATED ON HIS OWN ABOUT 200cc. RE-SCANNED AFTER AND STILL SHOWING URINE RETENTION 400cc. PATIENT REFUSING FOR ANYMORE RUBI INSERTION AT THIS TIME. WILL NOTIFY MD. ALL NEEDS ATTENDED. WILL CONTINUE TO MONITOR AND ASSESS.
[2021-11-15] MEDS: ZOLPIDEM 5 MG TABLET PO PRN (00:14)
--- NOTE | 2021-11-15 01:00 | NUR ---
PATIENT VOIDED LARGE AMOUNT OF URINE.
[2021-11-15] MEDS: MEROPENEM 1 G in IV NORMAL SALINE 100 ML IV SCH ×3 (01:28→17:06)
[2021-11-15 04:00] VITALS: BP 122/56
[2021-11-15] MEDS: VANCOMYCIN IV 1,500 MG in IV DEXTROSE 5% 500 ML IV SCH ×2 (04:09→20:29)
[2021-11-15] MEDS: MORPHINE SULFATE 2 MG/1 ML DISP.SYRIN IV PRN ×2 (04:10→17:06)
--- NOTE | 2021-11-15 04:15 | NUR ---
PATIENT AWAKE IN BED, MINIMAL URINE NOTED, WITH MODERATE AMOUNT OF BLOOD CLOTS NOTED. PATIENT STATED HE IS UNABLE TO URINATE. GROUP TESTER AT BEDSIDE. CHECKED PATIENTS BLADDER WITH SCANNER AND 534cc OF URINE NOTED. CALLED OUT TO MD FOR FURTHER ORDERS.
--- NOTE | 2021-11-15 04:30 | NUR ---
SPOKE WITH SHADY SMITH NP REGARDING PATIENTS CONDITION. RECEIVED ORDER FOR 3 WAY RUBI TO BE INSERTED FOR BLADDER IRRIGATION. PATIENT IS REFUSING AT THIS TIME. AWARE.
--- NOTE | 2021-11-15 05:30 | NUR ---
PATIENT EDUCATED ON IMPORTANCE OF RUBI REINSERTION. PATIENT REFUSED AT THIS TIME. AGRICULTURE MECHANIC NOTIFIED SHADY FOREMAN THAT PATIENT IS REFUSING AT THIS TIME. ALL NEEDS ATTENDED.
[2021-11-15] MEDS: PANTOPRAZOLE SODIUM 40 MG TABLET.DR PO SCH (06:10)
--- NOTE | 2021-11-15 06:19 | NUR ---
PATIENT ASLEEP IN BED. ON TELE. VSS. MD AWARE PATIENT IS REFUSING RUBI INSERTION AT THIS TIME. ALL NEEDS ATTENDED. WILL CONTINUE TO MONITOR AND ASSESS.
[2021-11-15] MEDS: TIMOLOL MALEATE 0.5% OPHT DROP 5 ML BOTTLE EACHEYE SCH (08:58)
[2021-11-15] MEDS: LOSARTAN POTASSIUM 25 MG TABLET PO SCH (09:00)
[2021-11-15] MEDS: Z GUARD REMEDY PASTE 57 GM TUBE TOP SCH ×2 (09:01→21:46)
--- NOTE | 2021-11-15 11:00 | NUR ---
patient seen and examined by dr givens with new orders and noted.
--- NOTE | 2021-11-15 11:30 | NUR ---
BLADDER SCANNED RESIDUAL IS 438 DR BAILEY NOTIFIED.
--- NOTE | 2021-11-15 11:45 | NUR ---
PER DR BAILEY HE HAS CONSULTED DR LOW UROLOGIST TO CONSULT WITH PATIENT
[2021-11-15 12:00] VITALS: BP 138/85
--- NOTE | 2021-11-15 12:15 | NUR ---
PATIENT IS ANXIOUS AND FRUSTRATED STATED THAT HE IS HAVING BLADDER SPASM UP AND DOWN ATTEMPTING TO URINATE EACH TIME VOIDING ABOUT [address] BAILEY AND LEFT HIM A MESSAGE.
--- NOTE | 2021-11-15 12:23 | NUR ---
DR HICKMAN RETURNED CALL WITH NEW ORDERS AND NOTED.
[2021-11-15] MEDS ORDERED: DIAZEPAM 5 MG TABLET PO PRN (12:30)
[2021-11-15 16:00] VITALS: BP 178/77
--- NOTE | 2021-11-15 16:30 | NUR ---
PATIENT REQUESTED FOR HIS BLADDER TO BE SCANNED CHECKED AND ITS 567 ML PATIENT STATED NOT READY FOR STRAIGHT CATH NOW WILL WAIT FOR THE UROLOGIST TO SEE HIM FIRST.
[2021-11-15 20:00] VITALS: BP 116/54
--- NOTE | 2021-11-15 20:12 | NUR ---
Patient in bed c/o bladder spasm. Offered Valium but refused at this time.On Ra saturating at 97 % .No s/s of distress noted.Family members at bedside.Patient and family member anxious if would come tonight.Dr sorensen made aware of the patient concern's.Stated he will follow up with Dr. Lima.Will continue to monitor.
--- NOTE | 2021-11-15 21:30 | NUR ---
Dr Corral came and inserted bragg catheter coude fr 16 . Tolerated well with 900 urine output. Patient stated he feels better. All due meds given .Midline on right upper arm patent and intact.Adm.IV ATb as ordered.No a/r noted. Call light with in reach. Will continue to monitor.
[2021-11-15] MEDS: ATORVASTATIN 40 MG TABLET PO SCH (21:46)
[2021-11-15] MEDS: TAMSULOSIN HCL 0.4 MG CAP.SR.24H PO SCH (21:46)
[2021-11-15] MEDS ORDERED: ENALAPRILAT DIHYDRATE 1.25 MG/1 ML VIAL IV PRN (22:30)
[2021-11-16] VITALS: BP 120/52
[2021-11-16] MEDS: MEROPENEM 1 G in IV NORMAL SALINE 100 ML IV SCH ×2 (01:14→09:06)
[2021-11-16 04:00] VITALS: BP 118/53
[2021-11-16 06:52] LABS: HEMATOCRIT 36.6 % (36.7-47.1); MEAN CORPUSCULAR HEMOGLOBIN 31.7 uug (23.8-33.4); MEAN CORPUSCULAR VOLUME 92.2 fL (73.0-96.2); PLATELET COUNT (AUTO) 318 K/uL (152-348)
[2021-11-16] MEDS: PANTOPRAZOLE SODIUM 40 MG TABLET.DR PO SCH (07:17)
[2021-11-16 07:23] LABS: BILIRUBIN,TOTAL 0.9 mg/dL (0.2-1.0); CREATININE 0.9 mg/dL (0.6-1.3); MAGNESIUM 2.3 mg/dL (1.8-2.4); PHOSPHOROUS 3.4 mg/dL (2.5-4.9); POTASSIUM 3.6 mmol/L (3.5-5.1); TOTAL PROTEIN, SERUM 6.3 g/dL (6.4-8.2)
--- NOTE | 2021-11-16 08:00 | NUR ---
awake alert and oriented, denies of any pain, tele SR 60's on room air, sat at 95%, needs attended, bragg cath draining maryse urine, safety measures maintained
[2021-11-16] MEDS ORDERED: POTASSIUM CHLORIDE 20 MEQ TAB.PRT.SR PO ONE (08:45)
[2021-11-16] MEDS: LOSARTAN POTASSIUM 25 MG TABLET PO SCH (09:00)
[2021-11-16] MEDS: TIMOLOL MALEATE 0.5% OPHT DROP 5 ML BOTTLE EACHEYE SCH (09:05)
[2021-11-16] MEDS: Z GUARD REMEDY PASTE 57 GM TUBE TOP SCH (09:06)
[2021-11-16] MEDS: VANCOMYCIN IV 1,500 MG in IV DEXTROSE 5% 500 ML IV SCH (11:09)
[2021-11-16] MEDS ORDERED: CLOPIDOGREL 75 MG TABLET PO SCH (11:15)
[2021-11-16] MEDS ORDERED: ASPIRIN 81 MG TAB.CHEW PO SCH (11:15)
[2021-11-16 12:00] VITALS: BP 126/65
[2021-11-16] MEDS ORDERED: ASPI-618 PO (14:13)
[2021-11-16] MEDS ORDERED: LOSA25TA27 PO (14:13)
[2021-11-16] MEDS ORDERED: CLOP75TA33 PO (14:13)
[2021-11-16] MEDS ORDERED: ACID1TAB4 PO (14:13)
[2021-11-16] MEDS ORDERED: ATOR40TA PO (14:13)
[2021-11-16] MEDS ORDERED: TAMS-3 PO (14:13)
--- NOTE | 2021-11-16 15:00 | NUR ---
resting in bed, family at bedside, surgical incision dry and intact- no redness noted
[2021-11-16 16:00] VITALS: BP 113/60
--- NOTE | 2021-11-16 16:09 | NUR ---
pt is going home, family at bedside, PICC line triple lumen on right upper arm- removed, cath intact, no redness/swelling on site,
--- NOTE | 2021-11-16 16:15 | NUR ---
discharge instructions given- verbalized understanding, ID braclet removed
--- NOTE | 2021-11-16 16:40 | NUR ---
escorted to car per w/c with all belongings under family's care, pt in stable condition with Grady cath draining maryse uriine
== END 2021-11-16 16:40 | disposition home health service (06) | DRG 417 ==
LOC: ER 13:54 → TELE3 18:47 → MEDSURG3 11-07 06:00 → CCU 11-07 12:45 → TELE3 11-13 19:05
PROVIDERS: ADMIT Internal Medicine; ATTEND Internal Medicine
PROC: 0FT44ZZ Resection of Gallbladder, Percutaneous Endoscopic Approach (ICD-10-PCS; principal; 2021-11-06)
PROC: 5A1945Z Respiratory Ventilation, 24-96 Consecutive Hours (ICD-10-PCS; 2021-11-07)
PROC: 0BH17EZ Insertion of Endotracheal Airway into Trachea, Via Natural or Artificial Opening (ICD-10-PCS; 2021-11-07)
DX: K80.00 Calculus of gallbladder with acute cholecystitis without obstruction (principal); A41.9 Sepsis, unspecified organism; J96.01 Acute respiratory failure with hypoxia; I21.4 Non-ST elevation (NSTEMI) myocardial infarction; N17.0 Acute kidney failure with tubular necrosis; R65.21 Severe sepsis with septic shock; I50.21 Acute systolic (congestive) heart failure; I21.A1 Myocardial infarction type 2; K72.00 Acute and subacute hepatic failure without coma; J69.0 Pneumonitis due to inhalation of food and vomit; E87.2 Acidosis; J98.11 Atelectasis; Z16.12 Extended spectrum beta lactamase (ESBL) resistance; E87.6 Hypokalemia; E78.5 Hyperlipidemia, unspecified; E83.42 Hypomagnesemia; I48.0 Paroxysmal atrial fibrillation; K21.9 Gastro-esophageal reflux disease without esophagitis; Z20.822 Contact with and (suspected) exposure to COVID-19; Z87.11 Personal history of peptic ulcer disease; Z87.891 Personal history of nicotine dependence; Z85.828 Personal history of other malignant neoplasm of skin; Z96.651 Presence of right artificial knee joint; M19.011 Primary osteoarthritis, right shoulder; K76.0 Fatty (change of) liver, not elsewhere classified; R74.01 Elevation of levels of liver transaminase levels; I25.10 Atherosclerotic heart disease of native coronary artery without angina pectoris; K44.9 Diaphragmatic hernia without obstruction or gangrene; K41.90 Unilateral femoral hernia, without obstruction or gangrene, not specified as recurrent; N40.1 Benign prostatic hyperplasia with lower urinary tract symptoms; R33.8 Other retention of urine; I70.0 Atherosclerosis of aorta; M19.90 Unspecified osteoarthritis, unspecified site; R73.9 Hyperglycemia, unspecified; E88.09 Other disorders of plasma-protein metabolism, not elsewhere classified; E66.9 Obesity, unspecified; Z68.28 Body mass index [BMI] 28.0-28.9, adult; B96.20 Unspecified Escherichia coli [E. coli] as the cause of diseases classified elsewhere; I70.8 Atherosclerosis of other arteries; K57.50 Diverticulosis of both small and large intestine without perforation or abscess without bleeding; Y83.8 Other surgical procedures as the cause of abnormal reaction of the patient, or of later complication, without mention of misadventure at the time of the procedure; Y73.8 Miscellaneous gastroenterology and urology devices associated with adverse incidents, not elsewhere classified; Y92.230 Patient room in hospital as the place of occurrence of the external cause
CPT/HCPCS: 36415; 36569; 36600; 70030-TC; 70450; 71045; 71275; 74018; 83605; 83690; 83735; 84100; 84153; 84478; 85025; 85730; 86850; 86900; 86901; 87040; 87070; 87075; 87077; 87086; 93005; 93307; 94002; 94003; 94664; 97161; A4217; A4663; A6209; C1758; C9113; G0378; J0330; J0690; J1170; J1644; J1885; J1940; J2060; J2185; J2250; J2270; J2405; J2543; J2765; J3010; J3370; J3475; J3480; J3490; J3590; J7030; J7050; J7060; J7120; Q9967